=== PATIENT | male | born 1995 ===

== ENCOUNTER 2019-07-15 07:19 | Emergency (ER) | payer BC ==
--- NOTE | 2019-07-15 07:53 | UC ---
Dental HPI - HPI Summary HPI Summary: Patient presents in urgent care for evaluation of dental pain he's had for 1 week. Patient states he believes he has a cavity in his right upper tooth. Patient states he's been taking Motrin 800 mg to 3 times a day. Not always. It. Patient states the Motrin helps but he started to feel some discomfort in his stomach after he takes the Motrin. No nausea or vomiting. No fevers or chills. No radiation of pain. No change in bowel or bladder. Patient recently moved here he does not have a dentist to see dental insurance. Patient without any intraoral edema or difficulty swallowing. No ear pain or facial swelling. Patient's medications is entered in the EMR by the triage which were reviewed. - History of Current Complaint Chief Complaint: UCDentalProblem Stated Complaint: DENTAL COMPLAINT Time Seen by Provider: 07/15/19 07:50 Hx Obtained From: Patient Severity: Mild Pain Intensity: 5 Pain Scale Used: 0-10 Numeric - Allergies/Home Medications Allergies/Adverse Reactions: Allergies Allergy/AdvReac Type Severity Reaction Status Date / Time bacitracin Allergy Intermediate Rash Verified 07/15/19 07:35 [From Neosporin ([id number])] neomycin Allergy Intermediate Rash Verified 07/15/19 07:35 [From Neosporin ([id number])] polymyxin B Allergy Intermediate Rash Verified 07/15/19 07:35 [From Neosporin ([id number])] Home Medications: Home Medications Ibuprofen TAB* [Motrin TAB* 800 MG] 800 mg PO Q6H 07/15/19 [History Confirmed ] PMH/Surg Hx/FS Hx/Imm Hx Previously Healthy: Yes - Surgical History Surgical History: Yes Surgery Procedure, Year, and Place: bilateral ear tubes - Family History Known Family History: Positive: Non-Contributory - Social History Occupation: Employed Full-time Lives: With Family Alcohol Use: Daily Substance Use Type: None Smoking Status (MU): Never Smoked Tobacco Review of Systems All Other Systems Reviewed And Are Negative: Yes Constitutional: Positive: Negative Skin: Positive: Negative Eyes: Positive: Negative ENT: Positive: Dental Pain - Right upper tooth Gastrointestinal: Positive: Other - Epigastric discomfort Physical Exam - Summary Physical Exam Summary: Vital Signs Reviewed: Yes A+Ox3, no distress Eyes: Conjunctiva Clear, ROBINA. EOM intact and full ENT: Hearing grossly normal TM x 2 clear - bilateral TM scars, turbinates wnl, mmoist, uvula midline, no exudate, no erythema Dental: #3 tooth mild TTP, mild edema at gumline, buccal side no fluctance no drainage no facial edema Neck: Positive: Supple Respiratory: Positive: No respiratory distress, No accessory muscle use + CTA throughout no w/r Cardiovascular: RRR nl s1, s2 no m/r CBT <2 sec abd soft + BS nd no guarding, no distension very minimal epigastric discomfort with deep palp. Musculoskeletal Exam: AMADOR x 4 without difficulty Strength Intact, ROM Intact Neurological: Positive: Alert, + sensation throughout Psychological: Positive: Normal Response To examiner Skin: Positive: no rash, no ecchymosis Triage Information Reviewed: Yes Vital Signs: Initial Vital Signs Temp 98.9 F 07/15/19 07:29 Pulse 76 07/15/19 07:29 Resp 18 07/15/19 07:29 BP 141/103 07/15/19 07:29 Pulse Ox 99 07/15/19 07:29 Dental Complaint Course/Dx - Course Course Of Treatment: Patient presents to urgent care for evaluation of dental pain. States has been present for a week. Patient's been taking Motrin which is in his epigastric discomfort. Nothing taken for this. On exam vital signs are stable. Elevated BP - likely related to pain -r ecommend f/u with pcp. Patient does have discomfort and #3 tooth. Patient with erythema at the gumline. Patient also with mild epigastric discomfort with deep palpation. No guarding or rebound. Patient reports a constant deep with some nausea. Recommend patient take penicillin first tooth. I taking Tylenol for pain. Prescription for Pepcid. Did offer patient looks here. Patient declined. Will take [id number]. Patient given a dental list. Return precautions discussed. Patient comfort and agreement with plan. - Differential Dx/Diagnosis Provider Diagnosis: Pain, dental, Gastritis Discharge ED - Sign-Out/Discharge Documenting (check all that apply): Patient Departure All imaging exams completed and their final reports reviewed: No Studies - Discharge Plan Condition: Stable Disposition: HOME Prescriptions: Famotidine TAB* [Pepcid 20 MG TAB*] 20 mg PO DAILY #30 tab Penicillin VK 500 MG TAB(NF) [Penicillin VK 500 mg Tab] 500 mg PO TID #21 tab Patient Education Materials: Gastritis (ED), Toothache (ED) Referrals: [facility] [Outside] No Primary Care Phys,NOPCP [Primary Care Provider] - Additional Instructions: - Okay to alternate ibuprofen (Advil, Motrin) 600mg and Tylenol 1000mg every 3 hours for pain. Take with food. Do NOT take for more than 4-5 days -Swish and spit with warm salt water 3-4 times a day -Take anitbiotics as prescribed until gone -Contact a clinic or go to the walk in clinic from the list provided to you today. If you develop swelling inside your mouth, difficulty with chewing or any other concerns it is recommended you go to the emergency department for futher management for your stomach: - try to use Tylenol instead of ibuprofen for pain - Take pepcid 2 times a day as prescribed to help protect your stomach liner - Okay to take Tums or Maalox every 6 hours for stomach burning - Take medications (pain medication or antibotics) with small amount of food - If your pain increases, you develop vomiting, fevers, or any other concerns it is recommended you go to the emergency department for further evaluation and treatment. - Billing Disposition and Condition Condition: STABLE Disposition: Home
== END 2019-07-15 08:19 | disposition home or self-care (01) ==
LOC: UCEAST 07:19
DX: K08.89 Other specified disorders of teeth and supporting structures (principal); K29.70 Gastritis, unspecified, without bleeding; Z88.1 Allergy status to other antibiotic agents
CPT/HCPCS: 99202; G0463